=== PATIENT | female | born 1975 | race Caucasian/White ===

== ENCOUNTER → 2016-10-22 | Outpatient (CLI) | payer BC | LOC: GMA 18:12 | PROVIDERS: ATTEND Nurse Practitioner Family | DX: R21 Rash and other nonspecific skin eruption (principal) ==

== ENCOUNTER → 2017-10-20 | Outpatient (CLI) | payer BC | LOC: GMAL 10:44 | PROVIDERS: ATTEND Family Medicine | DX: R25.8 Other abnormal involuntary movements (principal) ==

== ENCOUNTER → 2018-12-14 | Outpatient (CLI) | payer BC | LOC: GMAL 10:46 | PROVIDERS: ATTEND Family Medicine | DX: Z00.00 Encounter for general adult medical examination without abnormal findings (principal) ==

== ENCOUNTER → 2019-01-16 | Outpatient (CLI) | payer BC | LOC: GMAL 10:50 | PROVIDERS: ATTEND Family Medicine | DX: E83.42 Hypomagnesemia (principal); E87.6 Hypokalemia ==

== ENCOUNTER → 2020-03-14 | Outpatient (CLI) | payer BC ==
--- NOTE | 2020-03-17 14:29 | MAM ---
EXAM DESCRIPTION: 3D Screening BILATERAL : Digital Mammography. CLINICAL HISTORY: 44 years Female SCREEN . No complaints. Sister with breast cancer at age 47. Menarche age 16. Childbirth age 23. Premenopausal. No HRT. Bilateral breast augmentation. Lifetime risk of developing breast cancer (Tyrer-Cuzick model)(%): 16.6. COMPARISON: Baseline study at this facility. Prior studies from outside imaging facility performed in October 2017 are not yet available for comparison. No prior reports available. TECHNIQUE: Bilateral CC and MLO projection full-field images, with [facility] Implant Displacement digital tomosynthesis mammographic technique. Bilateral 2-D digital full-field images, MLO and CC projections, non-displaced. Bilateral digital 2-D full-field MLO images. With [place]lin displacement. CAD available for 2-D images. FINDINGS: The breast parenchymal density pattern is: Heterogeneously dense breast tissue, which may obscure small masses. Bilateral silicone derivative retro-muscular implants. Focal asymmetry posterior left breast upper inner quadrant at 10:30 on the displacement images. Axillary nodes. Possible focal asymmetry axillary tail right breast. No skin thickening or nipple retraction IMPRESSION: BI-RADS CATEGORY: 0 - INCOMPLETE- Need additional imaging evaluation. RECOMMENDATIONS: FOLLOW-UP: Recall for additional imaging: Bilateral targeted breast ultrasound region of interest.. Written communication concerning the IMPRESSION and Follow-up, will be mailed to the patient and referring health care provider. Electronically signed by: Reagan Serna MD 03/17/2020 2:27 PM DENIAL MANAGEMENT REPRESENTATIVE
== END ==
LOC: MAMMO 07:37
PROVIDERS: ATTEND Family Medicine
DX: Z12.31 Encounter for screening mammogram for malignant neoplasm of breast (principal)